=== PATIENT | male | born 1930 | race Caucasian/White ===

== ENCOUNTER → 2018-10-25 | Outpatient (CLI) | payer MEDICARE, OTHER ==
[2018-10-25 16:15] LABS: INR 2.1 (0.8-1.4); PROTHROMBIN TIME PATIENT 23.6 SEC (12.2-14.7)
== END ==
LOC: LAB FS 15:03
PROVIDERS: ATTEND Pediatrics
DX: I48.2 Chronic atrial fibrillation (principal)
CPT/HCPCS: 36415; 85610

== ENCOUNTER → 2018-12-29 | Outpatient (CLI) | payer MEDICARE, OTHER ==
--- NOTE | 2018-12-29 14:30 | Diagnostic Imaging Report ---
Indication: Chronic right hip pain. Comparison: None Findings: Two radiographic views of the right hip were obtained. There is no evidence of acute fracture or dislocation. Osseous structures are intact. 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 There is severe joint space narrowing with sclerotic remodeling of the articular surfaces. Osteophyte formations are also noted. No un-expectorated thick foreign bodies are seen. Impression: 1. No acute fracture or dislocation of the right hip. 2. Advanced osteoarthritic changes. Dictated by: Dictated on workstation # [id number]
== END ==
LOC: RAD FS 14:07
PROVIDERS: ATTEND Nurse Practitioner
DX: M16.11 Unilateral primary osteoarthritis, right hip (principal)
CPT/HCPCS: 73502

== ENCOUNTER → 2019-01-13 | Outpatient (CLI) | payer MEDICARE, OTHER ==
--- NOTE | 2019-01-13 14:24 | Diagnostic Imaging Report ---
PROCEDURE: MRI lumbar spine. TECHNIQUE: Multiplanar, multisequence MRI of the lumbar spine was performed without contrast. INDICATION: Right hip pain. Prior no prior MRI studies available for comparison. FINDINGS: Curvature is normal. There is minimal anterolisthesis of L4 on L5. Vertebral body heights are maintained. No acute compression fracture or geographic marrow lesion is seen. There is multilevel degenerative disc disease with variable disc space narrowing, desiccation and endplate osteophyte formation. Conus is unremarkable at the L1 level. T12-L1: Degenerative facet changes are noted. There is a broad-based disc/osteophyte complex. No significant central canal stenosis is seen. There is narrowing of the lateral recesses bilaterally. There is also moderate bilateral neural foraminal stenosis. L1-2: Broad-based disc/osteophyte complex is noted. Central canal is patent. Mild left neural foraminal narrowing is seen due to broad-based disc/osteophyte complex. Right neural foramen is patent. L2-3: Broad-based disc/osteophyte complex and ligamentous thickening is noted. Central canal remains patent but there is narrowing of the lateral recesses bilaterally. Moderate left and mild right neural foraminal stenosis is seen. L3-4: Ligamentous thickening and facet changes with broad-based disc/osteophyte complex is noted. Central canal is patent although there is significant narrowing of the lateral recesses bilaterally. There is also moderate bilateral neural foraminal stenosis. L4-5: Hypertrophic facet changes and ligamentous thickening as well as broad-based disc/osteophyte complex is present. This produces significant trefoil stenosis to the central canal. There is severe bilateral lateral recess stenosis as well as moderate bilateral neural foraminal stenosis. L5-S1: Central canal is widely patent. Neural foramina are widely patent. Paraspinous tissues are unremarkable. 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 No acute compression fracture is seen. Dictated by: Dictated on workstation # [id number]
== END ==
LOC: RAD 13:02
PROVIDERS: ATTEND Nurse Practitioner
DX: M47.26 Other spondylosis with radiculopathy, lumbar region (principal); M48.061 Spinal stenosis, lumbar region without neurogenic claudication; M48.05 Spinal stenosis, thoracolumbar region; M47.25 Other spondylosis with radiculopathy, thoracolumbar region; M51.16 Intervertebral disc disorders with radiculopathy, lumbar region
CPT/HCPCS: 72148

== ENCOUNTER 2019-01-19 16:10 | Emergency (ER) | payer MEDICARE, OTHER ==
[~2019-01-19] VITALS: Ht 165.1 cm; Wt 77.1 kg
--- NOTE | 2019-01-19 16:49 | ED Neurological Problem ---
General Chief Complaint: Neurological Problems Stated Complaint: RT HAND NUMBNESS; SLIGHTLY CONFUSED Nursing Triage Note: Was at hospital for a lab draw and had R hand numbness and difficulty writing name on paper due to numbness. States for the past week he has had episodes of "confusion" with difficulty finding the right words. Thinks he is having TIA's. Nursing Sepsis Screen: No Definite Risk Source: patient, RN notes reviewed Exam Limitations: no limitations History of Present Illness Date Seen by Provider: January 19, 2019 Time Seen by Provider: 16:49 Allergies and Home Medications Allergies Coded Allergies: Penicillins (Verified Allergy, Unknown, rash, 01/19/19) Sulfa (Sulfonamide Antibiotics) (Verified Allergy, Unknown, rash, 01/19/19) clindamycin (Verified Allergy, Unknown, rash, 01/19/19) doxycycline (Verified Allergy, Unknown, rash, 01/19/19) gatifloxacin (Verified Allergy, Unknown, rash, 01/19/19) ibuprofen (Verified Allergy, Unknown, 01/19/19) Past Dussltm-Mjktce-Irftur Hx Patient Social History Recent Foreign Travel: No Contact w/Someone Who Travel: No Recent Infectious Disease Expo: No Physical Exam Vital Signs Vital Signs - First Documented 01/19/19 16:25 Temp 98.5 Pulse 86 Resp 18 B/P (MAP) 159/79 (105) Pulse Ox 98 Capillary Refill : Less Than 3 Seconds Height, Weight, BMI Height: 5'5.00" Weight: 170lbs. oz. [id number]; BMI Method:Stated Progress/Results/Core Measures Results/Orders Lab Results Laboratory Tests Test 01/19/19 17:22 Range/Units White Blood Count 5.2 4.3-11.0 10^3/uL Red Blood Count 4.36 4.35-5.85 10^6/uL Hemoglobin 13.7 13.3-17.7 G/DL Hematocrit 41 40-54 % Mean Corpuscular Volume 93 80-99 FL Mean Corpuscular Hemoglobin 31 25-34 PG Mean Corpuscular Hemoglobin Concent 34 32-36 G/DL Red Cell Distribution Width 14.1 10.0-14.5 % Platelet Count 140 130-400 10^3/uL Mean Platelet Volume 8.9 7.4-10.4 FL Neutrophils (%) (Auto) 63 42-75 % Lymphocytes (%) (Auto) 20 12-44 % Monocytes (%) (Auto) 9 0-12 % Eosinophils (%) (Auto) 7 0-10 % Basophils (%) (Auto) 1 0-10 % Neutrophils # (Auto) 3.3 1.8-7.8 X 10^3 Lymphocytes # (Auto) 1.0 1.0-4.0 X 10^3 Monocytes # (Auto) 0.5 0.0-1.0 X 10^3 Eosinophils # (Auto) 0.4 H 0.0-0.3 10^3/uL Basophils # (Auto) 0.0 0.0-0.1 10^3/uL Prothrombin Time 19.2 H 12.2-14.7 SEC INR Comment 1.5 H 0.8-1.4 Activated Partial Thromboplast Time 32 24-35 SEC Sodium Level 139 135-145 MMOL/L Potassium Level 4.1 3.6-5.0 MMOL/L Chloride Level 100 98-107 MMOL/L Carbon Dioxide Level 25 21-32 MMOL/L Anion Gap 14 5-14 MMOL/L Blood Urea Nitrogen 32 H 7-18 MG/DL Creatinine 1.33 H 0.60-1.30 MG/DL Estimat Glomerular Filtration Rate 51 BUN/Creatinine Ratio 24 Glucose Level 122 H 70-105 MG/DL Calcium Level 9.2 8.5-10.1 MG/DL Corrected Calcium 9.1 8.5-10.1 MG/DL Magnesium Level 1.8 1.8-2.4 MG/DL Total Bilirubin 0.6 0.1-1.0 MG/DL Aspartate Amino Transf (AST/SGOT) 16 5-34 U/L Alanine Aminotransferase (ALT/SGPT) 13 0-55 U/L Alkaline Phosphatase 65 40-136 U/L Troponin T 30 H <=15 NG/L Total Protein 6.7 6.4-8.2 GM/DL Albumin 4.1 3.2-4.5 GM/DL My Orders Orders - AMBER BECERRA DO Ct Head Wo (01/19/19 16:46) Cbc With Automated Diff (01/19/19 16:46) Comprehensive Metabolic Panel (01/19/19 16:46) Magnesium (01/19/19 16:46) Protime With Inr (01/19/19 16:46) Partial Thromboplastin Time (01/19/19 16:46) Troponin T (01/19/19 16:46) Chest 1 View Ap/Pa Only (01/19/19 16:46) Ekg Tracing (01/19/19 16:46) Vital Signs/I&O 01/19/19 16:25 Temp 98.5 Pulse 86 Resp 18 B/P (MAP) 159/79 (105) Pulse Ox 98 Blood Pressure Mean: 105 Initial ECG Impression Date: January 19, 2019 Initial ECG Impression Time: 16:56 Initial ECG Rate: 77 Initial ECG Rhythm: A Fib/Flutter Initial ECG Intervals LBBB Initial ECG Comparisson: No Previous ECG Available Diagnostic Imaging Diagonstic Imaging: Xray, CT Plain Films/CT/US/NM/MRI: chest (NAD), head (Nothing acute) Departure Impression Primary Impression: TIA (transient ischemic attack) Additional Impression: Subtherapeutic anticoagulation Disposition: 01 HOME, SELF-CARE Condition: Improved Departure-Patient Inst. Decision time for Depature: 18:16 Referrals: VISHNU JONES MD (PCP/Family) Primary Care Physician Patient Instructions: Transient Ischemic Attack (DC) Add. Discharge Instructions: All discharge instructions reviewed with patient and/or family. Voiced under standing. RECOMMEND TAKING A DOUBLE DOSE OF YOUR WARFARIN (COUMADIN) TONIGHT. CALL DR. JONES IN THE AM, 01/20, AND LET HIM KNOW WHAT HAS OCCURRED TODAY. HE MAY WANT TO GET A DYE TEST OF THE ARTERIES IN YOUR HEAD AND NECK AND MAYBE AN ULTRASOUND OF YOUR HEART. CAN ALSO SEE WHAT HE WOULD RECOMMEND DOING WITH FURTHER DOSING OF YOUR WARFARIN. AMBER BECERRA DO January 19, 2019 16:49
--- NOTE | 2019-01-19 17:14 | Diagnostic Imaging Report ---
PROCEDURE: CT head without contrast. TECHNIQUE: Multiple contiguous axial images were obtained through the brain without the use of intravenous contrast. Auto Exposure Controls were utilized during the CT exam to meet ALARA standards for radiation dose reduction. DATE: January 19, 2019. COMPARISON: None. INDICATION: 88-year-old male, right hand numbness. Left-sided jaw tingling. FINDINGS: There is complete opacification of the right maxillary sinus which is not specific. Additional visualized portions of the paranasal sinuses are well aerated. The mastoid air cells and middle ears are well aerated, bilaterally. There is pneumatization of the Say apices. There is proportional prominence of the ventricles and CSF spaces compatible with mild cerebral volume loss. There is no mass effect or midline shift. There is no acute intracranial hemorrhage. There is no abnormal extra-axial fluid collection. IMPRESSION: 1. No identified acute intracranial abnormality. 2. Nonspecific complete opacification of the right maxillary sinus. 3. Mild cerebral volume loss. Dictated by: Dictated on workstation # [id number]
--- NOTE | 2019-01-19 17:25 | Diagnostic Imaging Report ---
EXAMINATION: Chest radiograph, portable AP view. DATE: January 19, 2019 at 1655 hours. INDICATION: 88-year-old male, right hand numbness. Left jaw tingling. Cough. COMPARISON: None available. FINDINGS: Heart size is within normal limits. Additional mediastinal contours are unremarkable. There is no identified pneumothorax. There is no large pleural effusion. There is no definite focal airspace consolidation. IMPRESSION: No definite acute cardiopulmonary abnormality. Dictated by: Dictated on workstation # [id number]
[2019-01-19 18:01] LABS: POTASSIUM 4.1 MMOL/L (3.6-5.0)
[2019-01-19 18:02] LABS: ALBUMIN 4.1 GM/DL (3.2-4.5); BILIRUBIN,TOTAL 0.6 MG/DL (0.1-1.0); CALCIUM 9.2 MG/DL (8.5-10.1); CREATININE SERUM 1.33 MG/DL (0.60-1.30); MAGNESIUM 1.8 MG/DL (1.8-2.4); TOTAL PROTEIN 6.7 GM/DL (6.4-8.2)
[2019-01-19 18:03] LABS: BASOPHILS % (AUTO) 1 % (0-10); EOSINOPHILS % (AUTO) 7 % (0-10); HEMATOCRIT 41 % (40-54); HEMOGLOBIN 13.7 G/DL (13.3-17.7); LYMPHOCYTES % (AUTO) 20 % (12-44); MEAN CORPUSCULAR HEMOGLOBIN 31 PG (25-34); MEAN CORPUSCULAR HGB CONC 34 G/DL (32-36); MEAN CORPUSCULAR VOLUME 93 FL (80-99); MEAN PLATELET VOLUME 8.9 FL (7.4-10.4); MONOCYTES % (AUTO) 9 % (0-12); NEUTROPHILS % (AUTO) 63 % (42-75); PLATELET COUNT 140 10^3/uL (130-400); RED CELL DISTRIBUTION WIDTH 14.1 % (10.0-14.5); WHITE BLOOD COUNT 5.2 10^3/uL (4.3-11.0)
[2019-01-19 18:04] LABS: EOSINOPHILS # (AUTO) 0.4 10^3/uL (0.0-0.3); INR 1.5 (0.8-1.4); MONOCYTES # (AUTO) 0.5 X 10^3 (0.0-1.0); NEUTROPHILS # (AUTO) 3.3 X 10^3 (1.8-7.8); PROTHROMBIN TIME PATIENT 19.2 SEC (12.2-14.7)
[2019-01-19 18:46] VITALS: BP 165/93
== END 2019-01-19 18:47 | disposition home or self-care (01) ==
LOC: EDUNIT# 16:10 → ER FS 16:11
DX: G45.9 Transient cerebral ischemic attack, unspecified (principal); Z79.01 Long term (current) use of anticoagulants; Z88.0 Allergy status to penicillin; Z88.2 Allergy status to sulfonamides; Z88.1 Allergy status to other antibiotic agents
CPT/HCPCS: 36415; 70450; 71045; 80053; 83735; 84484; 85025; 85610; 85730; 93005

== ENCOUNTER 2019-02-20 16:39 | Outpatient (RCR) | payer MEDICARE, OTHER ==
[2018-11-25 16:36] LABS: PROTHROMBIN TIME PATIENT 19.6 SEC (12.2-14.7)
[2018-11-25 16:37] LABS: INR 1.7 (0.8-1.4)
[2018-12-20 13:56] LABS: PROTHROMBIN TIME PATIENT 23.1 SEC (12.2-14.7)
[2019-02-06 16:06] LABS: INR 2.6 (0.8-1.4)
[2019-02-20 17:03] LABS: INR 2.1 (0.8-1.4); PROTHROMBIN TIME PATIENT 24.2 SEC (12.2-14.7)
== END 2019-02-23 | disposition home or self-care (01) ==
LOC: LAB FS 16:39
PROVIDERS: ATTEND Pediatrics
DX: I48.2 Chronic atrial fibrillation (principal)
CPT/HCPCS: 36415; 85610

== ENCOUNTER 2019-05-10 15:53 | Outpatient (RCR) | payer MEDICARE, OTHER ==
[2019-03-09 14:55] LABS: INR 1.7 (0.8-1.4); PROTHROMBIN TIME PATIENT 20.8 SEC (12.2-14.7)
[2019-04-06 15:00] LABS: INR 2.1 (0.8-1.4); PROTHROMBIN TIME PATIENT 24.9 SEC (12.2-14.7)
[2019-05-10 17:39] LABS: PROTHROMBIN TIME PATIENT 23.4 SEC (12.2-14.7)
== END 2019-06-07 | disposition home or self-care (01) ==
LOC: LAB FS 15:53
PROVIDERS: ATTEND Pediatrics
DX: I48.91 Unspecified atrial fibrillation (principal)
CPT/HCPCS: 36415; 85610

== ENCOUNTER 2019-08-07 14:41 | Outpatient (RCR) | payer MEDICARE, OTHER ==
[2019-06-09 16:15] LABS: INR 1.9 (0.8-1.4)
[2019-07-13 15:52] LABS: INR 1.9 (0.8-1.4); PROTHROMBIN TIME PATIENT 22.9 SEC (12.2-14.7)
[2019-08-07 15:29] LABS: INR 1.8 (0.8-1.4); PROTHROMBIN TIME PATIENT 21.3 SEC (12.2-14.7)
== END 2019-09-07 | disposition home or self-care (01) ==
LOC: LAB FS 14:41
PROVIDERS: ATTEND Pediatrics
DX: I48.21 Permanent atrial fibrillation (principal)
CPT/HCPCS: 36415; 85610

== ENCOUNTER → 2019-08-07 | Outpatient (CLI) | payer MEDICARE, OTHER | LOC: LAB FS 14:50 | PROVIDERS: ATTEND Pediatrics | DX: R20.0 Anesthesia of skin (principal) | CPT/HCPCS: 36415; 82607 ==